=== PATIENT | male | born 1965 | race Caucasian/White ===

== ENCOUNTER 2018-10-03 17:53 | Inpatient (IN) | payer SELFPAY ==
[~2018-10-03] VITALS: Ht 182.9 cm; Wt 97.3 kg
[2018-10-03 18:01] VITALS: Ht 182.9 cm; Wt 97.3 kg
--- NOTE | 2018-10-03 18:16 | NUR ---
PT PRESENTS TO ED C/O "INFECTION" TO R GREAT TOE. PT REPORTS HX OF DM, AND REPORTS HIS BS HAS BEEN "CONTROLLED". PT AWAITING MSE, NAD NOTED. IN POSITION OF COMFORT, CALL LIGHT WITHIN REACH.
--- NOTE | 2018-10-03 18:35 | NUR ---
XRAY AT BEDSIDE.
--- NOTE | 2018-10-03 18:42 | NUR ---
LAB AT BEDSIDE.
[2018-10-03 18:59] LABS: BASOPHIL % 2.2 % (0-2); PLATELET COUNT 259 x10^3mcL (130-400); RED CELL DISTRIBUTION WIDTH 12.7 % (11.5-14.5)
--- NOTE | 2018-10-03 18:59 | NUR ---
DR COUCH MADE AWARE OF PT'S VS.
[2018-10-03 19:05] LABS: CALCIUM 8.6 mg/dL (8.5-10.1); CARBON DIOXIDE 33.4 mmol/L (21-32); CHLORIDE SERUM 101 mmol/L (98-107); CREATININE SERUM 0.9 mg/dL (0.7-1.3); GFR1 > 60 mL/min; GLUCOSE SERUM 128 mg/dL (74-106); POTASSIUM SERUM 3.6 mmol/L (3.5-5.1); SODIUM SERUM 141 mmol/L (136-145)
[2018-10-03 19:10] LABS: ALKALINE PHOSPHATASE 97 U/L (46-116); ALT/SGPT 23 U/L (16-63); AST/SGOT 11 U/L (15-37); BILIRUBIN TOTAL 0.6 mg/dL (0.20-1.00); C REACTIVE PROTEIN 5.7 mg/dL (<=0.9); TOTAL PROTEIN, SERUM 8.1 g/dL (6.4-8.2)
[2018-10-03 19:11] LABS: ALBUMIN 3.3 g/dL (3.4-5.0)
--- NOTE | 2018-10-03 19:13 | NUR ---
REPORT GIVEN TO EMEKA SALGUERO TO ASSUME CARE OF PT.
[2018-10-03] MEDS ORDERED: GLU500 PO (19:15)
--- NOTE | 2018-10-03 19:40 | NUR ---
RECEIVED REPORT FROM ODMENIC HENDRICKSON AND ASSUMED CARE OF PATIENT. PT. SITTING ON GURNEY IN POSITION OF COMFORT. BREATHING E/U. NOT IN ANY APPARENT DISTRESS AT THIS TIME. CALL LIGHT IN REACH. WILL CONTINUE TO MONITOR
[2018-10-03 19:52] LABS: ERYTHROCYTE SED RATE 60 mm/hr (0-20)
--- NOTE | 2018-10-03 21:48 | NUR ---
PT. LAYING ON GURNEY IN POSITION OF COMFORT. BREATHING E/U. DENIES PAIN AT THIS TIME. CALL LIGHT IN REACH. WILL CONTINUE TO MONITOR
--- NOTE | 2018-10-03 21:52 | NUR ---
REPORT GIVEN TO YAMILKA HENDRICKSON FOR FURTHER CARE OF PATIENT. ALL QUESTIONS AND CONCERNS ADDRESSED.
--- NOTE | 2018-10-03 21:54 | NUR ---
PICTURES OF WOUND TAKEN AND PLACED IN CHART
--- NOTE | 2018-10-03 22:20 | NUR ---
PT. TRANSFERED TO [facility] VIA WHEELCHAIR BY KEEGAN ALLRED. PT. AAOX4, TALKING AND RESPONDING APPROPRIATELY, BREATHING E/U. NAD. STABLE AT TIME OF TRANSFER.
[2018-10-03 22:33] VITALS: BP 140/84
--- NOTE | 2018-10-03 22:42 | NUR ---
received from er, transported via wheelchair. awake and alert, oriented to name, place, time and situation. speech clear and appropriate. breathing even and unlabored on room air, lung sounds clear. sought admission due to 2x5cm open wound to plantar right big toe. hx of diabetes. admission history and assessment done. instructed on use of call light to call for assistance, placed within easy reach. endorsed to nurse britt
--- NOTE | 2018-10-03 22:43 | NUR ---
RECEIVED PT FROM PREVIOUS SHIFT. PT A/OX4. DENIES PAIN. DNEIES SOB ON RA. IV PATENT AND FLUSHING WELL. WOUND TO R FOOT, ABDI. PT ORIENTED TO ROOM AND SURROUNDINGS. CALL LIGHT WITHIN REACH, BED IN LOW POSTIION. WILL CONTINUE TO MONITOR.
[2018-10-03 22:57] LABS: MAGNESIUM 1.7 mg/dL (1.8-2.4); PHOSPHOROUS 2.9 mg/dL (2.5-4.9)
--- NOTE | 2018-10-04 00:51 | NUR ---
PT RESITNG IN NO ACUTE DISTRESS. RR EVEN AND UNLABORED. CALL LIGHT WITHIN REACH, BED IN LOW POSITION. CALL LIGHT WITHIN REACH, BED IN LOW POSITION. WILL CONTINUE TO MONITOR.
[2018-10-04 05:51] VITALS: BP 123/65
--- NOTE | 2018-10-04 07:24 | NUR ---
RECEIVED PATIENT FROM YAMILKA HENDRICKSON. PATIENT RESTINGCOMFORTABLY IN BED C/O BEING HUNGRY AND THIRSTY. ALL OTHER NEEDS MET. IV TO LFA IS PATENT AND INFUSING NS @ 100 ML/HR. NO REDNESS OR PAIN. PATIENT ON ROOM AIR. NO C/O SOB AND NO DISTRESS NOTED. ALL QUESTIONS AND CONCERNS ADDRESSED.
--- NOTE | 2018-10-04 07:48 | NUR ---
DR LINDSEY PAGED TO CONFIRM DIET ORDER AND THAT PATIENT IS OK TO EAT.
[2018-10-04 08:23] VITALS: BP 135/79
--- NOTE | 2018-10-04 09:50 | NUR ---
XRAY IN TO SEE PATIENT FOR RT FOOT XRAY.
--- NOTE | 2018-10-04 10:05 | NUR ---
ECHO IN TO SEE PATIENT.
[2018-10-04 10:26] LABS: microscopic required? NO
[2018-10-04 11:05] LABS: UA SPECIFIC GRAVITY 1.015 (1.005-1.035); urine erythrocyte NEGATIVE (NEGATIVE)
[2018-10-04 11:26] LABS: AMPHETAMINE QUAL UR NONE DETECTED (See below)
--- NOTE | 2018-10-04 12:09 | NUR ---
IN TO SEE PATIENT AND ADMINISTER MEDICATION (SEE eMAR). PATIENT RESTING COMFORTABLY IN BED C/O BEING HUNGRY AND THIRSTY. INFORMED PATIENT THAT WE ARE WAITING FOR PODIATRY CONSULT. ALL OTHER NEEDS MET.
--- NOTE | 2018-10-04 13:51 | NUR ---
RECEIVED CALL FROM [facility]CRO[facility]OLOGY THAT PATIENT WOUND CULTURE IS MISLABELLED AND THEREFORE REJECTED. NEW SPECIMEN OBTATINED HOWEVER, WOUND IS NO LONGER DRAINING AND IS DRY.
--- NOTE | 2018-10-04 16:06 | NUR ---
Discount pharmacy card and list to low cost medical clinics given to patient by Anastacia Muñoz.
--- NOTE | 2018-10-04 16:13 | NUR ---
PT C/O BEING HUNGRY. INFORMED PATIENT THAT WE ARE STILL WAITING ON PODIATRY CONSULT, I HAVE NOTIFIED DR LINDSEY THAT PATIENT IS HUNGRY AND SHE IS ATTEMPTING TO CALL PODIATRY. WILL KEEP PATIENT UPDATED AND PROVIDE FOOD BAILEY.
[2018-10-04 16:23] VITALS: BP 133/69
--- NOTE | 2018-10-04 17:48 | NUR ---
PODIATRY IN TO SEE PATIENT FOR BEDSIDE DEBRIDEMENT. CONSENT OBTAINED USING SALES RELATIONSHIP MANAGER PHONE. POST DEBRIDEMENT PICTURE TAKEN. PODIATRY OK TO ORDER DIET. [place] NOTIFIED AND AILEEN CALLED.
--- NOTE | 2018-10-04 19:29 | NUR ---
REPORT GIVEN TO GUMARO HENDRICKSON. PATIENT RESTING COMFORTABLY IN BED WITH ALL NEEDS MET. IV TO LFA IS PATENT AND INFUSING NS @ 100 ML/HR. NO REDNESS OR PAIN. ALL QUESTIONS AND CONCERNS ADDRESSED. ALL CARES ENDORSED.
--- NOTE | 2018-10-04 19:30 | NUR ---
RECIEVED PATIENT AT START OF SHIFT A/O X4. MED-SURG. NO SOB ON RA. DENIES PAIN. RLE WOUND DRESSING IN PLACE, CDI. TRACE EDEMA TO RLE, PULSE MODERATE. POST OP SHOE AT BEDSDIE. IV TO LFA, INFUSING WITHOUT ERYTHEMA OR INFILTRATION. BEDSIDE TABLE AND CALL LIGHT WITHIN REACH.
[2018-10-04 21:08] VITALS: BP 145/64
--- NOTE | 2018-10-05 01:50 | NUR ---
PATIENT'S EYES ARE CLOSED, BREATHS REGULAR, NO SOB ON RA. CALL LIGHT WITHIN REACH. IV INFUSING WELL.
[2018-10-05 05:29] VITALS: BP 119/72
--- NOTE | 2018-10-05 06:07 | NUR ---
PATIENT SLEPT WELL THROUGH THE NIGHT. NO SOB ON RA, NO DISTRESS, NO COMPLAINT OF PAIN. IV INFUSING WELL. RIGHT FOOT DRESSING CDI. POST OP SHOE AT BEDSDIE. CALL [facility] AND BEDSDIE TABLE WITHIN REACH. WILL ENDORSE CARE TO DAYSHIFT NURSE.
[2018-10-05 06:28] LABS: BASOPHIL % 0.5 % (0-2); PLATELET COUNT 242 x10^3mcL (130-400); RED CELL DISTRIBUTION WIDTH 12.9 % (11.5-14.5)
[2018-10-05 06:43] LABS: CALCIUM 8.3 mg/dL (8.5-10.1); CARBON DIOXIDE 33.5 mmol/L (21-32); CHLORIDE SERUM 103 mmol/L (98-107); CREATININE SERUM 0.9 mg/dL (0.7-1.3); GFR1 > 60 mL/min; GLUCOSE SERUM 110 mg/dL (74-106); MAGNESIUM 1.9 mg/dL (1.8-2.4); PHOSPHOROUS 4.4 mg/dL (2.5-4.9); POTASSIUM SERUM 3.9 mmol/L (3.5-5.1); SODIUM SERUM 142 mmol/L (136-145)
--- NOTE | 2018-10-05 07:10 | NUR ---
RECIEVED PT RESTING IN BED WITH NO C/O PAIN, DISTRESS, OR SOB. A/O X4 WITH NO BLAKE OR DIZZINESS. NS RUNNING AT 100ML/HR IN LFA, NO REDNESS OR INFLAMMATION NOTED. SAFETY PRECAUTIONS IN PLACE, CALL LIGHT WITHIN REACH, WILL MONITOR.
[2018-10-05 08:14] VITALS: BP 140/79
--- NOTE | 2018-10-05 10:00 | NUR ---
PT STABLE RESTING IN BED COMFORTABLY. NO C/O PAIN, DISTRESS, OR SOB. SAFETY PRECAUTIONS IN PLACE, CALL LIGHT WITHIN REACH, WILL MONITOR.
--- NOTE | 2018-10-05 13:13 | NUR ---
OLD IV REMOVED WITH CATHETER INTACT. NEW OV STARTED IN LAC 22G. INTACT AND PATENT WITH NO REDNESS OR INFLAMMATION NOTED.
[2018-10-05 17:02] VITALS: BP 129/75
--- NOTE | 2018-10-05 18:18 | NUR ---
PT STABLE AT THIS TIME, NO C/O PAIN, DISTRESS, OR SOB. A/O X4. IV INTACT AND PATENT TO LAC 22 GUAGE. NO REDNESS OR INFLAMMATION NOTED. NS RUNNING AT 100ML/HR. PT TOLERATED ALL CARES WELL. SAFETY PRECAUTIONS IN PLACE, CALL LIGHT WITHIN REACH, WILL ENDORSE TO NIGHT NURSE.
--- NOTE | 2018-10-05 19:30 | NUR ---
RECIEVED PATIENT AT START OF SHIFT A/O X4. DENIES PAIN. NO SOB ON RA. DRESSING IN PLACE TO RIGHT FOOT APPEARS CDI NO EXUDATE. DAY NURSES STATES PATIENT STILL HAS NOT HAD DRESSING CHANGE TODAY. WILL CHANGE DRESSING THIS SHIFT. POST OP SHOE AT BEDSIDE. FAMILY AT BEDSIDE. IV TO LAC INFUSING WELL WITHOUT ERYTHEMA OR INFILTRATION. WILL CONTINUE TO MONITOR.
--- NOTE | 2018-10-05 20:05 | NUR ---
RIGHT FOOT WOUND DRESSING REMOVED AT THIS TIME. WOUND ON GREAT BIG TOE APPEARS YELLOW/GREEN WITH 0.5 CM HOLE IN THE CENTER. NO FOUL ODOR NOTED. WOUND COVERED WITH BETADINE SOAKED GAUZE, GINNY, AND DANIEL WRAP. LEGS ELEAVTED WITH PILLOW UNDER THE CALVES, HEELS FLOATING. CALL LIGHT WITHIN REACH.
[2018-10-05 22:30] VITALS: BP 110/74
--- NOTE | 2018-10-06 06:43 | NUR ---
PATIENT SLEPT WELL THROUGH THE NIGHT. NO SIGNIFICANT EVENTS THIS SHIFT. RIGHT FOOT DRESSING CDI. DENIES PAIN. IV INFUSING WITHOUT ERYTHEMA OR INFILTRATION. CALL LIGHT WITHIN REACH. WILL EDNORSE CARE TO DAYSHIFT NURSE.
[2018-10-06 06:53] VITALS: BP 126/78
[2018-10-06 07:13] LABS: BASOPHIL % 0.3 % (0-2); PLATELET COUNT 249 x10^3mcL (130-400); RED CELL DISTRIBUTION WIDTH 12.6 % (11.5-14.5)
[2018-10-06 07:18] LABS: CALCIUM 8.6 mg/dL (8.5-10.1); CARBON DIOXIDE 32.3 mmol/L (21-32); CHLORIDE SERUM 101 mmol/L (98-107); CREATININE SERUM 0.8 mg/dL (0.7-1.3); GFR1 > 60 mL/min; GLUCOSE SERUM 123 mg/dL (74-106); POTASSIUM SERUM 3.7 mmol/L (3.5-5.1); SODIUM SERUM 143 mmol/L (136-145)
--- NOTE | 2018-10-06 07:34 | NUR ---
RECEIVED PT IN NO ACUTE DISTRESS. RESTING IN BED. AAOX4. RESP EVEN AND UNLABORED ON RA. DRESSING TO R FOOT C/D/I. NO C/O PAIN. POST-OP SHOE AT BEDSIDE. IV TO LAC, NO REDNESS OR SWELLING NOTED. BED IN LOW POSITION, CALL LIGHT WITHIN REACH. WILL CONTINUE TO MONITOR.
--- NOTE | 2018-10-06 11:52 | NUR ---
Recommendation(s): 1. Add Chato QD for wound healing 2. Spoke w/ MOLASSES COLORING OPERATOR regarding ONS r/t DM foot ulcer, confirmed.
--- NOTE | 2018-10-06 11:52 | NUR ---
Initial Nutrition Assessment: (255-B) KHUSHBU GUIDRY MEY 53M Dx: R foot DM infection PMHx: DM2 PSHx: None Labs: BG 123 H, Alb 3.3 L, AST 11 L, PTT 30.3 H Meds: Colace, Humulin, Zofran Diet: CCHO PO intake since admission: ~90% Ht: 72in Wt: 214# BMI: 29.1 Bed scale: 213# IBW: 178# %IBW: 120% UBW: 115kg Age: 53 Food Allergies: NKFA Skin: dressing to R foot CDI Jayson: 21 Edema: trace RLE GI: Last BM: 10/05 Note (10/06): Visited pt for primary Dx R foot DM infection. Pt Martiniquais speaking only, comprehends very little Telugu. Pt resting well, no c/o pain or discomfort at this time. Pt presented w/ DM foot ulcer w/o OM, pt states controls DM with diet & exercise, watches what he eats when he notices his BG elevated. Pt states educated on managing diabetes and importance for his BG and foot care/neuropathy. Spoke w/ OFFICE RECEPTIONIST Sonam regarding ONS r/t DM foot ulcer, confirmed. Problem with N/V/D/C: None Problems with: Chewing: no Swallowing: no Current appetite: Good Recent wt change: No %wt change: No Vitamin/Supplement use: VitC Special diet at home: DM Physical activity: N/A Nutrition education given (specify specific nutrition education and handout given): None given at this time. Food-drug interactions? Education given? None given at this time. Estimated Nutritional Needs Based on current body weight (97kg) Energy: 8026-7094 kcal/day (25-30 kcal/kg for maintenance/wound healing) Protein: 107-136 g/day (1.1-1.4 g/kg for DM wound healing) Fluid: 3600-6258 mL/day (1 mL/kcal) Nutrition Diagnosis: Increased nutrient needs r/t DM wound healing AEB R foot DM infection/wound s/p bedside debridement via Podiatry Consult Intervention 1. Add Chato QD for wound healing 2. Spoke w/ OFFICE RECEPTIONIST regarding ONS r/t DM foot ulcer, confirmed. Monitor/Evaluate Goal: PO intake at least 75% of estimated needs, adequate wound healing Monitor: PO intake, wound healing, Labs, GI function F/U in 3-5 days as moderate risk 10/09-10/11
--- NOTE | 2018-10-06 12:03 | NUR ---
PT IN NO ACUTE DISTRESS. RESTING IN BED. BREATHING EVEN AND UNLABORED ON RA. NO C/O PAIN. IVF INFUSING, NO REDNESS OR SWELLING NOTED. CALL LIGHT WITHIN REACH. WILL CONTINUE TO MONITOR.
[2018-10-06 16:27] VITALS: BP 130/56
--- NOTE | 2018-10-06 19:02 | NUR ---
DRESSING TO R FOOT CHANGED ORDERED. GAUZE SOAKED WITH BETADINE, 4X4, GINNY, AND DANIEL WRAP APPLIED. PT TOLERATED WELL. WILL ENDORSE TO ONCOMING SHIFT.
[2018-10-06 20:35] VITALS: BP 129/76
--- NOTE | 2018-10-06 20:43 | NUR ---
PATIENT RECEIVED AWAKE, ALERT, ORIENTED X4. SRI LANKAN SPEAKING. RESPIRATION EVEN AND UNLABORED, ON ROOM AIR. ONGOING 0.9% NS AT 100 CC/HR INFUSING WELL AT THE RIGHT HAND. LBM 10/05/2018. VOIDING FREELY WITHOUT DIFFICULTY. TRACE EDEMA RLE. RIGHT TOE ULCER COVERED WITH DRY AND INTACT DRESSING. HEEL WEIGHT BEARING ON R FOOT WITH POSTOP SHOE AT ALL TIMES. DENIES PAIN AT THIS TIME. WILL CONTINUE TO MONITOR.
--- NOTE | 2018-10-07 | NUR ---
PATIENT RESTING IN BED. RESPIRATION EVEN AND UNLABORED, ON ROOM AIR. DENIES DISCOMFORT/PAIN. IV SITE NO SIGN OF INFILTRATION. ASSISTED WITH NEEDS. WILL CONTINUE TO MONITOR.
[2018-10-07 05:51] VITALS: BP 107/65
[2018-10-07 06:33] LABS: BASOPHIL % 0.2 % (0-2); PLATELET COUNT 259 x10^3mcL (130-400); RED CELL DISTRIBUTION WIDTH 12.9 % (11.5-14.5)
--- NOTE | 2018-10-07 06:44 | NUR ---
PATIENT RESTING IN BED. RESPIRATION EVEN AND UNLABORED, ON ROOM AIR. IV SITE NO SIGN OF INFILTRATION. DRESSING TO RIGHT FOOT INTACT. DENIES DISCOMFORT/PAIN. ASSISTED WITH NEEDS. SAFETY OBSERVED. PLACED BED IN THE LOWEST POSITION. PLACED CALL LIGHT WITHIN REACH AT ALL TIMES.
[2018-10-07 06:57] LABS: CALCIUM 8.4 mg/dL (8.5-10.1); CHLORIDE SERUM 103 mmol/L (98-107); CREATININE SERUM 0.9 mg/dL (0.7-1.3); GFR1 > 60 mL/min; GLUCOSE SERUM 105 mg/dL (74-106); POTASSIUM SERUM 3.5 mmol/L (3.5-5.1); SODIUM SERUM 143 mmol/L (136-145)
--- NOTE | 2018-10-07 07:20 | NUR ---
RECEIVED PT IN NO ACUTE DISTRESS. SLEEPING BUT EASILY AROUSABLE. RESP EVEN AND UNLABORED ON RA. IVF INFUSING, NO REDNESS OR SWELLING TO IV SITE. DRESSING TO R FOOT C/D/I, RLE ELEVATED WITH PILLOW. BED IN LOW POSITION, CALL LIGHT WITHIN REACH. WILL CONTINUE TO MONITOR.
--- NOTE | 2018-10-07 07:48 | NUR ---
DR. RAMOS AT BEDSIDE TO CHANGE PT'S DRESSING TO R FOOT.
[2018-10-07 08:31] VITALS: BP 127/75
--- NOTE | 2018-10-07 10:50 | NUR ---
PT WANTED TO LEAVE AMA. DR. VAUGHN EXPLAINED RISKS OF LEAVING AMA TO PT. PT INSISTED ON LEAVING AMA. AMA FORM SIGNED AND PLACED IN CHART. DRESSING TO R FOOT C/D/I. IV TO R HAND DC'D WITH CATHETER INTACT. BELONGINGS WITH PT. MARITZA ZULETA PRESENT FOR TRANSLATION. INSTRUCTED PT TO FOLLOW UP WITH PCP AND CORE DRILLER HELPER. ALSO EDUCATED PT TO GO TO THE NEAREST ED IF THERE IS FOUL ODOR, PUS DRAINAGE, INCREASED REDNESS, WARMTH AND PAIN TO R FOOT WOUND AREA, PT VERBALIZED UNDERSTANDING. PT WEARING POST-OP SHOE ON R FOOT WHILE AMBULATING. PT AWAKE, ALERT, AND ORIENTED. NO ACUTE DISTRESS. MARITZA ZULETA ACCOMPANIED PT TO LOBBY.
== END 2018-10-07 10:50 | disposition left against medical advice (07) | DRG 872 ==
LOC: ED 17:53 → MU 20:32
PROVIDERS: Emergency Medicine; ADMIT General Practice
DX: A41.9 Sepsis, unspecified organism (principal); E11.621 Type 2 diabetes mellitus with foot ulcer; L97.519 Non-pressure chronic ulcer of other part of right foot with unspecified severity; Z60.2 Problems related to living alone; F10.10 Alcohol abuse, uncomplicated; Y90.9 Presence of alcohol in blood, level not specified; Z53.21 Procedure and treatment not carried out due to patient leaving prior to being seen by health care provider; E83.42 Hypomagnesemia; Z79.84 Long term (current) use of oral hypoglycemic drugs; Z83.3 Family history of diabetes mellitus; Z82.49 Family history of ischemic heart disease and other diseases of the circulatory system
CPT/HCPCS: 36600; 82962; 97116-GP; G0378; J2543; J3370; J7030; Q0092